=== PATIENT | male | born 1945 | race Hispanic/Latino ===

== ENCOUNTER 2017-07-23 09:38 | Emergency (ER) | payer MEDICARE, OTHER ==
[2017-07-23 09:51] VITALS: BMI 34.8
--- NOTE | 2017-07-23 10:33 | CT ---
PROCEDURE: CT HEAD WITHOUT CONTRAST. HISTORY: Possible CVA/TIA COMPARISON: None available. TECHNIQUE: Axial computed tomography images were obtained through the head/brain without intravenous contrast. Study is limited by motion artifact. Radiation dose: Total exam DLP = 2142.25 MGy-cm. This CT exam was performed using one or more of the following dose reduction techniques: Automated exposure control, adjustment of the mA and/or kV according to patient size, and/or use of iterative reconstruction technique. FINDINGS: HEMORRHAGE: No acute parenchymal, subarachnoid nor extra-axial hemorrhage identified on this study within limitation of the exam. BRAIN: Moderate diffuse/confluent chronic periventricular white matter ischemic changes are seen extending peripherally into the deep and subcortical white matter both cerebral hemispheres. Additionally, there are scattered chronic bilateral basal nuclei lacunar type infarcts. Moderate generalized volume loss VENTRICLES: No obstructive hydrocephalus. CALVARIUM: No acute calvarial fractures. PARANASAL SINUSES: Unremarkable as visualized. No significant inflammatory changes. MASTOID AIR CELLS: Unremarkable as visualized. No inflammatory changes. OTHER FINDINGS: None. IMPRESSION: No acute intracranial hemorrhage. Moderate chronic white matter ischemic changes with scattered chronic bilateral basal nuclei lacunar type infarcts. Case discussed with Dr. Forman at approximately 10:20 a.m.
--- NOTE | 2017-07-23 10:46 | ED PDOC ---
Arrival/HPI - General Chief Complaint: Weakness/Neurological Deficit Time Seen by Provider: 07/23/17 09:47 Historian: Spouse - History of Present Illness Narrative History of Present Illness (Text): 07/23/17 10:00 A 72 year old male, was brought in by EMS to the emergency department after an unresponsive episode prior to arrival. As per , she saw the pt stumble then sit down acacia chair and slump over a table at which time his eyes were still open but he was not speaking or responding for approx 5 minutes. PMD: Dr. Doug Holcomb Symptom Onset: Sudden Symptom Course: Unchanged Activities at Onset: Rest Context: Home Past Medical History - Provider Review Nursing Documentation Reviewed: Yes - Infectious Disease Hx of Infectious Diseases: None - Tetanus Immunization Tetanus Immunization: Unknown - Cardiac Hx Hyperlipemia: Yes Hx Pacemaker: No - Neurological Hx Paralysis: No - Renal Hx Neurogenic Bladder: Yes - Hematological/Oncological Hx Cancer: Yes (prostate) - Musculoskeletal/Rheumatological Hx Musculoskeletal Disorders: No Hx Falls: No - Gastrointestinal Hx Diverticulitis: Yes Hx Hemorrhoids: Yes - Genitourinary/Gynecological Hx Prostate Cancer: Yes Hx Prostate Problems: Yes - Psychiatric Hx Depression: No Hx Emotional Abuse: No Hx Physical Abuse: No Hx Substance Use: No - Surgical History Hx Inguinal Hernia Repair: Yes - Anesthesia Hx Anesthesia: Yes - Suicidal Assessment Feels Threatened In Home Enviroment: No Family/Social History - Physician Review Nursing Documentation Reviewed: Yes Family/Social History: Other (nc) Smoking Status: Current Some Days Smoker Hx Alcohol Use: Yes (occasionally) Hx Substance Use: No Hx Substance Use Treatment: No Allergies/Home Meds Allergies/Adverse Reactions: Allergies tetanus and diphtheria toxoids Allergy (Verified 07/23/17 09:57) ANAPHYLAXIS Home Medications: Home Meds Medication Instructions Recorded Confirmed Unobtainable 07/23/17 07/23/17 Review of Systems - Physician Review All systems were reviewed & negative as marked: Yes - Review of Systems Constitutional: Fatigue. absent: Fevers Respiratory: SOB, Cough Cardiovascular: Chest Pain, Syncope Gastrointestinal: Nausea. absent: Diarrhea, Vomiting Neurological: absent: Headache, Dizziness, Focal Weakness Physical Exam Vital Signs Reviewed: Yes Vital Signs Temp Pulse Resp BP Pulse Ox 07/23/17 14:00 98 F 75 19 129/72 98 07/23/17 11:38 85 20 110/59 L 98 07/23/17 11:33 98 F 85 20 107/55 L 98 Appearance: Positive for: Comfortable Pain Distress: None Mental Status: Positive for: Alert and Oriented X 3 Finger Stick Blood Glucose: 143 - Systems Exam Head: Present: Atraumatic, Normocephalic Pupils: Present: PERRL Extroacular Muscles: Present: EOMI Conjunctiva: Present: Normal Mouth: Present: Moist Mucous Membranes Neck: Present: Normal Range of Motion Respiratory/Chest: Present: Clear to Auscultation. No: Respiratory Distress, Accessory Muscle Use Cardiovascular: Present: Regular Rate and Rhythm, Normal S1, S2. No: Murmurs Abdomen: No: Tenderness, Distention, Peritoneal Signs Upper Extremity: No: Cyanosis, Edema Lower Extremity: No: Edema Neurological: Present: GCS=15, CN II-XII Intact, Motor Func Grossly Intact, Normal Sensory Function, Normal Cerebellar Funct, Other (no focal deficits. hard of hearing.) Skin: Present: Warm, Dry, Normal Color. No: Rashes Psychiatric: Present: Alert, Oriented x 3, Normal Insight, Normal Concentration Medical Decision Making ED Course and Treatment: 07/23/17 09:42 Code stroke called immediately upon arrival due to EMS report of "aphasia" Upon complete h&p after pt returned from CT it seems this was actually an episode of transient loss of consciousness, not aphasia. 07/23/17 10:36 CT HEAD WITHOUT CONTRAST Creator : Luisito Garcia MD FINDINGS: HEMORRHAGE: No acute parenchymal, subarachnoid nor extra-axial hemorrhage identified on this study within limitation of the exam. BRAIN: Moderate diffuse/confluent chronic periventricular white matter ischemic changes are seen extending peripherally into the deep and subcortical white matter both cerebral hemispheres. Additionally, there are scattered chronic bilateral basal nuclei lacunar type infarcts. Moderate generalized volume loss VENTRICLES: No obstructive hydrocephalus. CALVARIUM: No acute calvarial fractures. PARANASAL SINUSES: Unremarkable as visualized. No significant inflammatory changes. MASTOID AIR CELLS: Unremarkable as visualized. No inflammatory changes. IMPRESSION: No acute intracranial hemorrhage. Moderate chronic white matter ischemic changes with scattered chronic bilateral basal nuclei lacunar type infarcts. Case discussed with Dr. Forman at approximately 10:20 a.m. 07/23/17 13:32 I recommended patient to be admitted for further evaluation. I expressed my concern that his loss of consciousness may have been due to life threatening cause such as a heart arrhythmia, that could possibly be fatal if happens again. Patient verbalized understanding and was adamant that he did not want to stay in the emergency department. Patient says he is feeling better and, again, is insistent upon discharge. His is present and also acknowledges risks and agrees with this plan. Patient was instructed to follow up with physician or return if symptoms worsen or new concerning symptoms arise. - Lab Interpretations Lab Results: 07/23/17 10:39 07/23/17 10:39 Lab Results 07/23/17 10:55: Blood Type Confirm O POSITIVE 07/23/17 10:55: Blood Type O POSITIVE, Antibody Screen Negative, BBK History Checked No verified bt 07/23/17 10:39: Hemoglobin A1c 6.2 07/23/17 10:39: Sodium 137, Potassium 4.0, Chloride 106, Carbon Dioxide 22, Anion Gap 14, BUN 22 H, Creatinine 1.0, Est GFR ( Amer) > 60, Est GFR ( Non-Af Amer) > 60, Random Glucose 138 H, Calcium 9.4, Total Bilirubin 0.7, AST 18, ALT 34, Alkaline Phosphatase 94, Troponin I < 0.01, Total Protein 7.5, Albumin 4.0, Globulin 3.5, Albumin/Globulin Ratio 1.1, Triglycerides 100, Cholesterol 214 H, LDL Cholesterol Direct 159 H, HDL Cholesterol 40 07/23/17 10:39: PT 11.9, INR 1.08, APTT 26.5 07/23/17 10:39: WBC 7.9, RBC 5.12, Hgb 14.5, Hct 44.0, MCV 85.9, MCH 28.3, MCHC 33.0, RDW 13.7, Plt Count 259, MPV 8.7, Gran % 73.4 H, Lymph % (Auto) 19.0 L, [place] % (Auto) 6.2 H, Eos % (Auto) 1.3 L, Baso % (Auto) 0.1, Gran # 5.82, Lymph # 1.5, [place] # 0.5, Eos # 0.1, Baso # 0.01 07/23/17 10:14: POC Glucose (mg/dL) 143 H I have reviewed the lab results: Yes - RAD Interpretation Radiology Orders: 07/23/17 09:55 HEAD W/O (CODE STROKE) [CT] Stat 07/23/17 09:57 CHEST PORTABLE [RAD] Stat - EKG Interpretation Interpreted by ED Physician: Yes Type: 12 lead EKG NIHSS Scale ([place]) Time Performed: 09:42 rTPA Inclusion/Exclusion - Refusal of Treatment Patient Refused Treatment: No - Inclusion Criteria for Altepase Patient is 18 years or Older: Yes The Clinical Diagnosis of Ischemic Stroke That is Causing a Potentially Disabling Neurological Deficit: No Time of Onset is Well Established to be Less Than 270 Minute Before Treatment Would Begin: No Risk/Benefit Discussed With Patient/Family Member Present: No NIHSS Stroke Scale 3 - Date/Time Evaluation Performed Time Performed: :42 - How Severe is the Stroke Level of Consciousness: 0=Alert LOC to Questions: 0=Both comments correct LOC to commands: 0=Obeys both correctly Best Gaze: 0=Normal Visual: 0=No visual loss Facial: 0=Normal Motor Arm - Left: 0=No drift Motor Arm - Right: 0=No drift Motor Leg - Left: 0=No drift Motor Leg - Right: 0=No drift Limb Ataxia: 0=Absent Sensory: 0=Normal Best Language: 0=No aphasia Dysarthia: 0=Normal articulation Extinction & Inattention (Neglect): 0=Normal, no object Score: 0 - Scribe Statement The provider has reviewed the documentation as recorded by the Sabine Osborne Provider Scribe Attestation: All medical record entries made by the Scribe were at my direction and personally dictated by me. I have reviewed the chart and agree that the record accurately reflects my personal performance of the history, physical exam, medical decision making, and the department course for this patient. I have also personally directed, reviewed, and agree with the discharge instructions and disposition. Disposition/Present on Arrival - Present on Arrival Any Indicators Present on Arrival: No History of DVT/PE: No History of Uncontrolled Diabetes: No Urinary Catheter: No History of Decub. Ulcer: No History Surgical Site Infection Following: None - Disposition Have Diagnosis and Disposition been Completed?: Yes Diagnosis: Loss of consciousness Disposition: HOME/ ROUTINE Disposition Time: 13:32 Condition: STABLE Discharge Instructions (ExitCare): Syncope (ED) Additional Instructions: Please follow up with your doctor on Monday. Return to the ER for any worsening symptoms or for any other concerns. Referrals: Doug Holcomb MD [Primary Care Provider] - Follow up with primary Forms: [employer] ([place]ian)
[2017-07-23 10:49] LABS: BASO # 0.01 K/mm3 (0.0-2.0); BASO % 0.1 % (0.0-3.0); EOS # 0.1 (0.0-0.7); EOS % 1.3 % (1.5-5.0); GRAN # 5.82 (1.4-6.5); GRAN % 73.4 % (50.0-68.0); HEMOGLOBIN 14.5 g/dL (14.0-18.0); LYMPH # 1.5 (1.2-3.4); MEAN CELL VOLUME 85.9 fl (80.0-105.0); MEAN CORPUSCULAR HEMOGLOBIN 28.3 pg (25.0-35.0); MEAN PLATELET VOLUME 8.7 fl (7.0-11.0); MONO # 0.5 (0.1-0.6); MONO % 6.2 % (1.0-6.0); RBC 5.12 10^6/uL (3.5-6.1); RED CELL DISTRIBUTION WIDTH 13.7 % (11.5-14.5); WHITE BLOOD COUNT 7.9 10^3/ul (4.5-11.0)
[2017-07-23 10:58] LABS: ALB/GLOB RATIO 1.1 (1.1-1.8); ALT/SGPT 34 U/L (7-56); AST/SGOT 18 U/L (17-59); BLOOD UREA NITROGEN 22 mg/dL (7-21); CALCIUM 9.4 mg/dL (8.4-10.5); GFR AFRICAN-AMERICAN > 60; GFR NON-AFRICAN AMERICAN > 60; HDL CHOLESTEROL 40 mg/dL (29-60)
[2017-07-23 11:04] LABS: INR 1.08 (0.93-1.08); PARTIAL THROMBOPLASTIN TIME 26.5 Seconds (25.1-36.5); PROTHROMBIN TIME 11.9 SECONDS (9.4-12.5)
[2017-07-23 11:09] LABS: LDL CHOLESTEROL 159 mg/dL (0-129)
[2017-07-23 11:36] VITALS: TEMP 98; O2SAT 98
[2017-07-23 13:07] LABS: TROPONIN I < 0.01 ng/mL
[2017-07-23 14:37] VITALS: BP 129/72; PULSE 75; RESP 19
--- NOTE | 2017-07-23 15:24 | CARD ---
APPROVED REPORT EKG Measurement Heart [id number] <Conclusion> Normal sinus rhythm Left axis deviation Right bundle branch block Inferior infarct, age undetermined Abnormal ECG
--- NOTE | 2017-07-23 16:32 | RAD ---
HISTORY: cva COMPARISON: Comparison chest 08/03/2012. FINDINGS: LUNGS: Minor bibasilar atelectasis. PLEURA: No significant pleural effusion identified, no pneumothorax apparent. CARDIOVASCULAR: Heart appears upper limits of normal in size OSSEOUS STRUCTURES: No significant abnormalities. VISUALIZED UPPER ABDOMEN: Normal. OTHER FINDINGS: None. IMPRESSION: Minor bibasilar atelectasis.
== END 2017-07-23 14:36 | disposition home or self-care (01) ==
LOC: ED 09:38
DX: R55 Syncope and collapse (principal); E78.5 Hyperlipidemia, unspecified; Z85.46 Personal history of malignant neoplasm of prostate